=== PATIENT | female | born 1955 | race Caucasian/White ===

== ENCOUNTER 2019-02-10 20:47 | Emergency (ER) | payer BC ==
--- NOTE | 2019-02-10 21:06 | ED ---
Laceration/Wound HPI - HPI Summary HPI Summary: Pt is a 64 y/o F presenting to the ED for a chief complaint of laceration to the second finger on the right hand which occurred 25 minutes [employer]. 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 Pt washed the wound with water after sustaining the laceration. Pt denies numbness or paresthesia in the fingers of the right hand. Pt has a PMHx of HTN for which she takes Atenolol. Pt admits alcohol use occasionally, but drank none today. Pt denies tobacco or drug use. Pt had an UTD tetanus vaccination before taking a trip to [facility] in 2016, and had the tetanus vaccination in 2011. - History of Current Complaint Stated Complaint: CUT ON FINGER PER PT Time Seen by Provider: 02/10/19 20:54 Hx Obtained From: Patient Onset/Duration: Sudden Onset, Lasting Minutes, Still Present Aggravating: Nothing Alleviating: Nothing Onset Severity: Mild Current Severity: Mild Pain Intensity: 3 Pain Scale Used: 0-10 Numeric Associated Signs & Symptoms: Negative - Allergy/Home Medications Allergies/Adverse Reactions: Allergies Allergy/AdvReac Type Severity Reaction Status Date / Time No Known Allergies Allergy Verified 02/10/19 20:53 PMH/Surg Hx/FS Hx/Imm Hx Previously Healthy: Yes Endocrine/Hematology History: Denies: Hx Diabetes Cardiovascular History: Reports: Hx Hypertension Musculoskeletal History: Denies: Hx Osteoporosis Sensory History: Denies: Hx Legally Blind, Hx Deafness Opthamlomology History: Denies: Hx Legally Blind EENT History: Denies: Hx Deafness - Cancer History Hx Chemotherapy: No Hx Radiation Therapy: No - Surgical History Surgical History: None Surgery Procedure, Year, and Place: None Infectious Disease History: No Infectious Disease History: Denies: Traveled Outside the [place] in Last 30 Days - Family History Known Family History: Negative: Diabetes - Social History Alcohol Use: Occasionally Hx Substance Use: No Substance Use Type: Reports: None Hx Tobacco Use: No Smoking Status (MU): Never Smoked Tobacco Review of Systems Positive: Other - Laceration on the 2nd finger of the right hand Negative: Paresthesia - Fingers on the right hand, Numbness - Fingers on the right hand All Other Systems Reviewed And Are Negative: Yes Physical Exam - Summary Physical Exam Summary: Constitutional: Well-developed, Well-nourished, Alert. (-) Distressed Skin: Warm, Dry. 1 cm laceration over the 2nd finger of the right hand on the [place] surface, distal to the DIP joint, full ROM in all joints. HENT: Normocephalic; Atraumatic Eyes: Conjunctiva normal Neck: Musculoskeletal ROM normal neck. (-) JVD, (-) Stridor, (-) Tracheal deviation Cardio: Rhythm regular, rate normal, Heart sounds normal; Intact distal pulses; Radial pulses are 2+ and symmetric. (-) Murmur Pulmonary/Chest wall: Effort normal. (-) Respiratory distress, (-) Wheezes, (-) Rales Abd: Soft, (-) tenderness, (-) Distension, (-) Guarding, (-) Rebound Musculoskeletal: (-) Edema Lymph: (-) Cervical adenopathy Neuro: Alert, Oriented x3 Psych: Mood and affect Normal Triage Information Reviewed: Yes Vital Signs On Initial Exam: Initial Vitals Temp Pulse Resp BP Pulse Ox 98.6 F 83 18 148/101 98 02/10/19 20:50 02/10/19 20:50 02/10/19 20:50 02/10/19 20:50 02/10/19 20:50 Vital Signs Reviewed: Yes Procedures - Sedation Patient Received Moderate/Deep Sedation with Procedure: No - Laceration/Wound Repair 1 Location: Other - 2nd finger of the right hand Description: Linear Betadine Prep?: No Irrigated w/ Saline (ccs): 250 Laceration/Wound Explored: clean Closure: Skin Adhesive, SteriStrips Suture Type: Other - Dermabond Layer Closure?: No Sterile Dressing Applied?: No Diagnostics - Vital Signs Vital Signs Temp Pulse Resp BP Pulse Ox 02/10/19 20:50 98.6 F 83 18 148/101 98 - Laboratory Lab Statement: Any lab studies that have been ordered have been reviewed, and results considered in the medical decision making process. Laceration Repair Course/Dx - Course Course Of Treatment: Patient is here with a small laceration to her finger. Patient is up-to-date on tetanus. Patient had a successful repair of her wound with a pressure dressing applied. - Clinical Impression Provider Diagnoses: Finger laceration Discharge ED - Sign-Out/Discharge Documenting (check all that apply): Patient Departure - Discharge - Discharge Plan Condition: Stable Disposition: HOME Patient Education Materials: Finger Laceration (ED) Referrals: Joanna Curry MD [Primary Care Provider] - Additional Instructions: Keep your finger clean and dry and do not apply any antibiotic ointment. Your Steri-strips and glue will fall off on their own over time. Return to the ED if you have redness, swelling, or discharge from the finger. - Billing Disposition and Condition Condition: STABLE Disposition: Home - Attestation Statements Document Initiated by Nikunjibnaldo: Yes Documenting Scribe: Senait Elizalde Provider For Whom Nikunjibe is Documenting (Include Credential): Antoni Tovar MD Scribe Attestation: Senait English, scribed for Antoni Tovar MD on 02/10/19 at 2129. Scribe Documentation Reviewed: Yes Provider Attestation: The documentation as recorded by the Senait celeste accurately reflects the service I personally performed and the decisions made by , Antoni Tovar MD Status of Scribe Document: Viewed
[2019-02-10 21:23] VITALS: BP 145/91
== END 2019-02-10 21:20 | disposition home or self-care (01) ==
LOC: ED 20:47
DX: S61.210A Laceration without foreign body of right index finger without damage to nail, initial encounter (principal); W25.XXXA Contact with sharp glass, initial encounter; Y92.218 Other school as the place of occurrence of the external cause
CPT/HCPCS: 99282